=== PATIENT | female | born 1940 | race Caucasian/White ===

== ENCOUNTER 2020-07-07 11:04 | Emergency (ER) | payer MEDICARE, BC, SELFPAY ==
[2020-07-07 11:23] VITALS: BP 155/82; PULSE 49; RESP 16; TEMP 37.1; O2SAT 97
--- NOTE | 2020-07-07 11:26 | ED.EAR ---
HPI - Ear Problem General Chief complaint: Ear Stated complaint: earache Source: patient and RN notes reviewed Limitations: no limitations History of Present Illness HPI Narrative: The patient, non-smoker/nondrinker presents with ear discomfort, Patient states she has about 1/2-week history of L >R ear discomfort and preceding, associated ongoing tinnitus- which improved as the eras worsened. No fever, discharge, sore throat, cough, rash, S OB, sneezing/wheezing, smoker/pet triggers, TMJ pain , bruxism, tooth ache-she has regular dental care. No loss of taste/smell, vomiting/diarrhea-she had a prior Covid test earlier around Day Discussed possible causes [dental, infectious (sinusitis), acquired,allergic... etc] and will treat broadly. Related Data Home Medications Medication Instructions Recorded Confirmed atenolol 07/07/20 pravastatin 07/07/20 Allergies Allergy/AdvReac Type Severity Reaction Status Date / Time No Known Allergies Allergy Verified 07/07/20 11:13 Review of Systems Review of Systems: Narrative: General/Constitutional: No weight loss,fever Eyes: N0: Redness,discharge Ears/Nose/Throat: No: Epistaxis,ear discharge Respiratory: Denies: Hemoptysis Gastrointestinal: No Vomiting, Bleeding-rectal Skin: No Lumps, eruption Neurologic: No Focal Weakness,Sz Hematologic: Denies: Petechiae/Purpura Psychiatric: No: Suicida ideationl All Other Systems: Reviewed and Negative PMFSH Comments At time of signature, agree with nursing past medical, surgical, social and family history. There is no relevant family history pertinent to the presenting complaint Exam Narrative: Exam Narrative: General Appearance: Well appearing, No distress EYE: PERRLA, Conjunctiva clear Ears: External ear normal, TM and EAC normal Nose: Normal nose Mouth/Throat: Normal appearing, Normal lips Neck: Supple Respiratory: Airway patent, No respiratory distress Cardiovascular: No JVD Musculoskeletal: Full ROM Skin: Warm, Dry Neurological: A&O x3, CN II-X intact Psychiatric: Normal mood, Normal affect Course Vital Signs Vital signs: Vital Signs Temperature 98.7 F 07/07/20 11:23 Pulse Rate 49 L 07/07/20 11:23 Respiratory Rate 16 07/07/20 11:23 Blood Pressure 155/82 H 07/07/20 11:23 Pulse Oximetry 97 07/07/20 11:23 Temperature 98.7 F 07/07/20 11:23 Pulse Rate 49 L 07/07/20 11:23 Respiratory Rate 16 07/07/20 11:23 Blood Pressure 155/82 H 07/07/20 11:23 Pulse Oximetry 97 07/07/20 11:23 Medical Decision Making Vital Signs Vital Signs: Vital Signs Temperature 98.7 F 07/07/20 11:23 Pulse Rate 49 L 07/07/20 11:23 Respiratory Rate 16 07/07/20 11:23 Blood Pressure 155/82 H 07/07/20 11:23 Pulse Oximetry 97 07/07/20 11:23 Temperature 98.7 F 07/07/20 11:23 Pulse Rate 49 L 07/07/20 11:23 Respiratory Rate 16 07/07/20 11:23 Blood Pressure 155/82 H 07/07/20 11:23 Pulse Oximetry 97 07/07/20 11:23 Lab Data Labs: Lab Results 07/07/20 Range/Units 11:42 POC SARS CoV-2 Ag Negative (Negative) Discharge Plan Discharge Clinical Impression: Otalgia, bilateral Tinnitus Qualifiers: Laterality: bilateral Qualified Code(s): H93.13 - Tinnitus, bilateral Patient Disposition: Home, Self-Care Condition: Stable Instructions: Antibiotic Form, Tinnitus (ED) Additional Instructions: See your PMD or ENT in follow-up Prescriptions: New amoxicillin 875 mg tablet 875 mg PO Q12H Qty: 20 RF: 0 prednisone 20 mg tablet 60 mg PO DAILY Qty: 9 RF: 0 azelastine 137 mcg (0.1 %) aerosol,spray 137 mcg NASAL Q12H Qty: 30 RF: 1 No Action pravastatin 40 mg tablet 40 mg PO DAILY RF: 0 atenolol 25 mg tablet 25 mg PO DAILY RF: 0 Follow-up/Referrals: Brock Marks MD [Other]
== END 2020-07-07 12:01 | disposition home or self-care (01) ==
PROVIDERS: Emergency Provider Emergency Medicine
DX: H92.03 Otalgia, bilateral (principal); H93.13 Tinnitus, bilateral; Z20.822 Contact with and (suspected) exposure to COVID-19; E78.00 Pure hypercholesterolemia, unspecified; I10 Essential (primary) hypertension
CPT/HCPCS: 87426; 99203; C9803; G0463

== ENCOUNTER 2022-10-23 09:35 | Emergency (ER) | payer MEDICARE, BC, SELFPAY ==
[2022-10-23 09:45] VITALS: BP 170/66; PULSE 76; RESP 16; TEMP 36.2; O2SAT 100
--- NOTE | 2022-10-23 09:59 | ED.EAR ---
HPI - Ear Problem General Chief complaint: Ear Stated complaint: rt ear clogged Time Seen by Provider: 10/23/22 09:49 Source: patient and RN notes reviewed Mode of arrival: ambulatory Limitations: no limitations History of Present Illness HPI Narrative: Patient presents today complaining of right ear clogging x8 days. She has been, during this time, been up and down in an airplane, and this is which she is attributing her symptoms to. Denies pain or drainage to the ear. She has tried Benadryl, Claritin, and Vicks without relief. Related Data Home Medications Medication Instructions Recorded Confirmed atenolol 25 mg tablet 25 mg PO DAILY 07/07/20 10/23/22 pravastatin 40 mg tablet 40 mg PO DAILY 07/07/20 07/07/20 Allergies Allergy/AdvReac Type Severity Reaction Status Date / Time No Known Allergies Allergy Verified 10/23/22 09:47 Review of Systems Review of Systems: CONSTITUTIONAL: Denies body aches, fever, chills, or sweats. EYES: Denies visual changes, redness, or discharge. ENT: Denies rhinorrhea, congestion, sore throat, or otalgia.+ right ear clogging CARDIOVASCULAR: Denies chest pain, palpitations, or edema. RESPIRATORY: Denies cough or dyspnea. GASTROINTESTINAL: Denies abdominal pain, nausea, vomiting, or diarrhea. GENITOURINARY: Denies dysuria or hematuria. SKIN: Denies rash, itching, or wounds. MUSCULOSKELETAL: Denies back pain, joint pain, or myalgia. NEUROLOGIC: Denies headache, numbness, tingling, or weakness. PSYCH: Denies depression or anxiety. [facility] Past Medical History Medical History (Updated 10/23/22 @ 10:03 by Jeniffer Charles, [facility], ) High cholesterol Hypertension Comments At time of signature, I have reviewed and agree with nursing past medical, surgical, social and family history unless otherwise noted. Please see nursing chart for further information. There is no relevant family history pertinent to the presenting complaint Exam Narrative: GENERAL: Well-appearing, well-nourished, and in no acute distress. HEAD: Normocephalic, atraumatic. EYES: EOMI. No redness or drainage. Conjunctivae normal. ENT: Mucous membranes pink and moist. Nares clear. No rhinorrhea. Left TM normal. Right TM erythematous and bulging with purulent material. NECK: Normal AROM. CHEST: No respiratory distress. EXTREMITIES: Normal range of motion. No edema. SKIN: Warm, dry, no rash. Capillary refill normal. Normal skin turgor. NEURO: No focal deficits. Alert and oriented x3. Gait steady. PSYCH: Normal affect. No signs of depression or anxiety. Course Course Level of Care: Express Care Visit Vital Signs Vital signs: Vital Signs Temperature 97.1 F L 10/23/22 09:45 Pulse Rate 76 10/23/22 09:45 Respiratory Rate 16 10/23/22 09:45 Blood Pressure 170/66 H 10/23/22 09:45 Pulse Oximetry 100 10/23/22 09:45 Temperature 97.1 F L 10/23/22 09:45 Pulse Rate 76 10/23/22 09:45 Respiratory Rate 16 10/23/22 09:45 Blood Pressure 170/66 H 10/23/22 09:45 Pulse Oximetry 100 10/23/22 09:45 Reviewed. Pt has been instructed to follow up with her PCP regarding her elevated blood pressure today. Medical Decision Making MDM Narrative Medical decision making narrative: Exam consistent with right otitis media. Prescription for amoxicillin sent to pharmacy. Also recommend starting Flonase and Coricidin. Anticipatory guidance given. Differential Diagnosis Differential Diagnosis: Otitis media, otitis externa, ruptured TM, serous otitis eustachian tube dysfunction, cerumen impaction Vital Signs Vital Signs: Vital Signs Temperature 97.1 F L 10/23/22 09:45 Pulse Rate 76 10/23/22 09:45 Respiratory Rate 16 10/23/22 09:45 Blood Pressure 170/66 H 10/23/22 09:45 Pulse Oximetry 100 10/23/22 09:45 Temperature 97.1 F L 10/23/22 09:45 Pulse Rate 76 10/23/22 09:45 Respiratory Rate 16 10/23/22 09:45 Blood Pressure 170/66 H 10/23/22 09:45 Pul
== END 2022-10-23 10:10 | disposition home or self-care (01) ==
PROVIDERS: Emergency Provider Nurse Practitioner
DX: H66.001 Acute suppurative otitis media without spontaneous rupture of ear drum, right ear (principal); E78.00 Pure hypercholesterolemia, unspecified; I10 Essential (primary) hypertension
CPT/HCPCS: 99213; G0463

== ENCOUNTER 2023-04-13 10:43 | Emergency (ER) | payer MEDICARE, BC, SELFPAY ==
[2023-04-13 10:55] VITALS: BP 171/103; PULSE 96; RESP 16; TEMP 36.8; O2SAT 98
--- NOTE | 2023-04-13 11:13 | ED.BACK ---
HPI - Back Pain/Injury General Chief Complaint: Extremity Injury, Lower Stated Complaint: L HIP/LEG PAIN Time Seen by Provider: 04/13/23 11:02 Source: patient and RN notes reviewed Mode of arrival: ambulatory Limitations: no limitations History of Present Illness HPI Narrative: Patient presents today complaining of left posterior hip pain x2 days with occasional radiation down the left leg. Denies numbness or tingling in the leg or foot. Denies any loss of bowel or bladder control. She currently rates her pain at rest 1-2/10, which increases with weight-bearing to 10/10. She has been taking some ibuprofen with mild relief. Pain started after she has been cleaning in her home, climbing up and down a step stool, and moving furniture. Related Data Home Medications Medication Instructions Recorded Confirmed atenolol 25 mg tablet 25 mg PO DAILY 07/07/20 04/13/23 Allergies Allergy/AdvReac Type Severity Reaction Status Date / Time No Known Allergies Allergy Verified 04/13/23 10:57 Review of Systems Review of Systems: CONSTITUTIONAL: Denies body aches, fever, chills, or sweats. EYES: Denies visual changes, redness, or discharge. ENT: Denies rhinorrhea, congestion, sore throat, or otalgia. CARDIOVASCULAR: Denies chest pain, palpitations, or edema. RESPIRATORY: Denies cough or dyspnea. GASTROINTESTINAL: Denies abdominal pain, nausea, vomiting, or diarrhea. GENITOURINARY: Denies dysuria or hematuria. SKIN: Denies rash, itching, or wounds. MUSCULOSKELETAL: Denies back pain. + left hip pain NEUROLOGIC: Denies headache, numbness, tingling, or weakness. PSYCH: Denies depression or anxiety. PMFSH Past Medical History Medical History High cholesterol Hypertension Comments At time of signature, I have reviewed and agree with nursing past medical, surgical, social and family history unless otherwise noted. Please see nursing chart for further information. There is no relevant family history pertinent to the presenting complaint Exam Narrative: GENERAL: Well-appearing, well-nourished, and in no acute distress. HEAD: Normocephalic, atraumatic. EYES: EOMI. No redness or drainage. Conjunctivae normal. ENT: Mucous membranes pink and moist. NECK: Normal AROM. CHEST: No respiratory distress. MUSCULOSKELETAL: No bony tenderness of the spine. No paraspinal muscle tenderness of the lumbar spine. +tenderness of the left SI joint. Distal sensation intact in both feet. Saddle sensation intact. capillary refill normal. Dorsiflexion and plantar flexion equal and strong against resistance. EXTREMITIES: Normal range of motion. No edema. SKIN: Warm, dry, no rash. Capillary refill normal. Normal skin turgor. NEURO: No focal deficits. Alert and oriented x3. Gait steady. PSYCH: Normal affect. No signs of depression or anxiety. Course Course Level of Care: Express Care Visit Vital Signs Vital signs: Vital Signs Temperature 98.2 F 04/13/23 10:55 Pulse Rate 96 04/13/23 10:55 Respiratory Rate 16 04/13/23 10:55 Blood Pressure 171/103 H 04/13/23 10:55 Pulse Oximetry 98 04/13/23 10:55 Oxygen Delivery Room Air 04/13/23 10:55 Temperature 98.2 F 04/13/23 10:55 Pulse Rate 96 04/13/23 10:55 Respiratory Rate 16 04/13/23 10:55 Blood Pressure 171/103 H 04/13/23 10:55 Pulse Oximetry 98 04/13/23 10:55 Oxygen Delivery Room Air 04/13/23 10:55 Reviewed. Patient has not taken her hypertension medication today. MDM - Back Pain/Injury MDM Narrative Medical decision making narrative: Patient's symptoms are likely due to left-sided sciatica. Will prescribe a short course of prednisone. No testing indicated at this time. Anticipatory guidance given. Differential Diagnosis Differential diagnosis: Likely lumbar radiculopathy, sciatica and strain of lumbar region Critical Care Time Critical Care Time Critical Care Time: No
== END 2023-04-13 11:22 | disposition home or self-care (01) ==
PROVIDERS: Emergency Provider Nurse Practitioner
DX: M54.32 Sciatica, left side (principal); I10 Essential (primary) hypertension
CPT/HCPCS: 99213; G0463

== ENCOUNTER 2023-05-05 10:49 | Emergency (ER) | payer MEDICARE, BC, SELFPAY ==
--- NOTE | ~2023-05-05 | XR_ITS ---
EXAMINATION: XR hip LT min 2V DATE: 05/05/2023 11:26 INDICATION: Left leg numbness. Frequent falls. TECHNIQUE: 2 views of left hip were obtained. COMPARISON: None. FINDINGS: Bone alignment is normal. No fracture. There is moderate left hip osteoarthritis. IMPRESSION: 1. Moderate left hip osteoarthritis. Reviewed, dictated and finalized at location A. [employer]
--- NOTE | ~2023-05-05 | XR_ITS ---
. EXAMINATION: XR lumbar spine 2-3V DATE: 05/05/2023 11:25 INDICATION: Left leg numbness. TECHNIQUE: 3 views of lumbar spine were obtained. COMPARISON: None. FINDINGS: There is 10 degrees dextroscoliosis of lumbar spine. Vertebral body heights are normal. The re is mildly decreased disc height at L2-L3 and L3-L4 and severely decreased disc height at L4-L5 and L5-S1. There is multilevel facet joint osteoarthritis, severe at many levels. There is a total right hip arthroplasty. IMPRESSION: 1. Severe lumbar spondylosis. 2. Lumbar dextroscoliosis. Reviewed, dictated and finalized at location A. R MENDER
--- NOTE | 2023-05-05 10:53 | ED.GENADULT ---
HPI - General Adult General Chief complaint: Back Pain/Injury Stated complaint: FALLING A LOT Time Seen by Provider: 05/05/23 11:00 Source: patient Mode of arrival: ambulatory Limitations: no limitations History of Present Illness HPI narrative: Tayler marquez an 83-year-old female patient presenting to the clinic today with complaints of left lateral leg numbness radiating into the foot she reports the the numbness is causing her to have frequent falls. Reports that she has fallen 7 times since the numbness developed about a week ago. Was seen here 3 weeks ago for and diagnosed with left-sided sciatica and was given some steroids at that time. Reports that the hip pain is now improved however now she is having numbness and tingling in her leg and foot. Denies any recent falls or injuries. Denies any saddle anesthesia or loss of bowel or bladder. Related Data Allergies Allergy/AdvReac Type Severity Reaction Status Date / Time No Known Allergies Allergy Verified 05/05/23 10:50 Review of Systems Review of Systems: Pertinent positives per HPI. Patient denies any fever, chills, rash, headache, visual changes, dizziness, cough, runny nose, sore throat, shortness of breath, chest pain, palpitations, nausea, vomiting, diarrhea, constipation, abdominal pain, or any urinary issues. [facility] Past Medical History Medical History High cholesterol Hypertension Comments At the time of my signature, I reviewed and agree with the nursing past medical, surgical, social, and family history. There is no relevant family history pertinent to the patient complaint. Exam Narrative: General: Well-developed, well nourished, in no apparent distress Head: Normocephalic, atraumatic. Cardio: Regular rate and rhythm, s1 and s2 normal, no murmur appreciated. Resp: Clear to auscultation bilaterally, no rhonchi, rales, wheezing or rubs. Musculoskeletal: No deformity, tender to palpation over the lateral knee, sensation is decreased to the lateral left lower leg when compared to the right leg, dorsiflexion against resistance is weaker on the left when compared to the right, grossly normal range of motion, muscle strength strong and equal, peripheral pulse strong, no edema, no cyanosis, normal gait in the clinic. Course Course Emergency Course: Portions of this record may have been created with voice recognition software. Level of Care: Express Care Visit Vital Signs Vital signs: Vital signs reviewed Medical Decision Making MDM Narrative Medical decision making narrative: At the time of visit patient is resting on the exam table. 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 I suspect patient has inflammation to her left peroneal nerve. Prescription for Medrol Dosepak was sent to the pharmacy. Supportive measures were discussed with the patient she voiced understanding the discharge instructions and agrees to treatment plan. Return precautions were reviewed Differential Diagnosis Differential Diagnosis: Peroneal nerve inflammation, sciatica, lumbar radiculopathy, SI joint dysfunction, Guillain-Lefor Imaging Data Radiologist's impression: ITS Impressions Lumbar Spine X-Ray 05/05/23 11:29 IMPRESSION: 1. Severe lumbar spondylosis. 2. Lumbar dextroscoliosis. Hip X-Ray 05/05/23 11:30 IMPRESSION: 1. Moderate left hip osteoarthritis. 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
[2023-05-05 10:57] VITALS: BP 127/108; PULSE 89; RESP 16; TEMP 37.1; O2SAT 99
== END 2023-05-05 12:05 | disposition home or self-care (01) ==
PROVIDERS: Emergency Provider Nurse Practitioner Family
DX: M47.816 Spondylosis without myelopathy or radiculopathy, lumbar region (principal); M41.86 Other forms of scoliosis, lumbar region; G57.32 Lesion of lateral popliteal nerve, left lower limb; M16.12 Unilateral primary osteoarthritis, left hip; E78.00 Pure hypercholesterolemia, unspecified; I10 Essential (primary) hypertension
CPT/HCPCS: 72100; 73502; 99214; G0463